=== PATIENT | female | born 1985 | race Caucasian/White ===

== ENCOUNTER 2016-09-08 16:51 | Emergency (ER) | payer BC | END 2016-09-08 21:34 | disposition home or self-care (01) | LOC: ER 16:51 | DX: R10.9 Unspecified abdominal pain (principal); R11.2 Nausea with vomiting, unspecified; R19.7 Diarrhea, unspecified; K21.9 Gastro-esophageal reflux disease without esophagitis; G93.2 Benign intracranial hypertension | CPT/HCPCS: 36415; 96361; 96374 ==